=== PATIENT | female | born 1995 | race Caucasian/White ===

== ENCOUNTER 2017-02-12 14:28 | Emergency (ER) | payer OTHER ==
[~2017-02-12] VITALS: Ht 177.8 cm; Wt 79.1 kg
[2017-02-12 14:30] VITALS: BP 109/77
[2017-02-12] MEDS ORDERED: ACETAMINOPHEN 325 MG TABLET PO ONE (15:00)
[2017-02-12] MEDS ORDERED: ACETAMINOPHEN 325 MG TABLET ONE (15:21)
[2017-02-12 15:30] LABS: RAPID INFLUENZA A Negative (Negative); RAPID INFLUENZA B Negative (Negative)
== END 2017-02-12 16:00 | disposition home or self-care (01) ==
LOC: ED 15:50
DX: B34.9 Viral infection, unspecified (principal)
CPT/HCPCS: 71020; 87400; 99285